=== PATIENT | female | born 1990 | race Caucasian/White ===

== ENCOUNTER → 2016-07-31 | Day surgery (SDC) | payer OTHER ==
[~2016-07-31] MED LIST: DO NOT ADM ANY ANTICOAGULANT DRUGS XX PRN; FERR325T PO; INSULIN HUMAN REGULAR 1,000 UNITS/10 ML VIAL SQ PRN; LACTATED RINGER'S 1000 ML IV SCH; METOPROLOL TARTRATE 25 MG TAB PO PRN; MIDAZOLAM HCL 2 MG/2 ML VIAL ONE; PREN29TA PO; PROPOFOL 200 MG/20 ML AMP IV ONE; SODIUM CHLORID 0.9% 500 ML IV SCH; oxyCODONE/ACETAMINOPHEN 5 MG/325 MG TAB PO PRN
[2016-07-31 10:39] VITALS: BP 125/75; PULSE 93; RESP 20; TEMP 98.9; O2SAT 93
--- NOTE | 2016-07-31 11:17 | HHI.HP ---
History of Present Illness Service OB Primary Care Physician No Primary Care Physician Admission Diagnosis incompetent cervix Diagnoses: (1) Incompetence of cervix Diagnosis: Principal (2) with 13 completed weeks gestation Diagnosis: Secondary Review of Systems Except as stated in HPI: all other systems reviewed are Neg Past Family Social History Allergies: Coded Allergies: No Known Allergies (Verified , 07/30/16) Past Medical History none Past Surgical History cervical cerclage Reported Medications none Social History negative x3 Physical Exam Vital Signs Vital Signs Date Time Temp Pulse Resp B/P Pulse Ox O2 Delivery O2 Flow Rate FiO2 07/31/16 10:39 98.9 93 20 125/75 93 Physical Exam GENERAL: This is a well-nourished, well-developed patient, in no apparent distress. SKIN: No rashes, ecchymoses or lesions. Cool and dry. HEAD: Atraumatic. Normocephalic. No temporal or scalp tenderness. EYES: Pupils equal round and reactive. Extraocular motions intact. No scleral icterus. No injection or drainage. ENT: Nose without bleeding, purulent drainage or septal hematoma. Throat without erythema, tonsillar hypertrophy or exudate. Uvula midline. Airway patent. NECK: Trachea midline. No JVD or lymphadenopathy. Supple, nontender, no meningeal signs. CARDIOVASCULAR: Regular rate and rhythm without murmurs, gallops, or rubs. RESPIRATORY: Clear to auscultation. Breath sounds equal bilaterally. No wheezes , rales, or rhonchi. GASTROINTESTINAL: Abdomen soft, non-tender, nondistended. No hepato-splenomegaly , or palpable masses. No guarding. MUSCULOSKELETAL: Extremities without clubbing, cyanosis, or edema. No joint tenderness, effusion, or edema noted. No calf tenderness. Negative Homans sign bilaterally. NEUROLOGICAL: Awake and alert. Cranial nerves II through XII intact. Motor and sensory grossly within normal limits. Five out of 5 muscle strength in all muscle groups. Normal speech. Assessment and Plan Problem List: (1) Incompetence of cervix Status: Acute (2) with 13 completed weeks gestation Status: Acute Plan: cervical cerclage with incompetent cervix at 13 weeks Doe Smith MD Jul 31, 2016 11:17
[2016-07-31 11:18] LABS: AUTOMATED NEUTROPHIL # 5.3 TH/MM3 (1.8-7.7); BASOPHIL # 0.1 TH/MM3 (0-0.2); BASOPHIL % 0.8 % (0.0-2.0); EOSINOPHIL # 0.2 TH/MM3 (0-0.4); EOSINOPHIL % 2.4 % (0.0-4.0); HEMATOCRIT 31.3 % (35.0-46.0); HEMO FLAGS DIFF FINAL; LYMPH % 27.1 % (9.0-44.0); LYMPHOCYTE # 2.2 TH/MM3 (1.0-4.8); MEAN CELL VOLUME 90.2 FL (80.0-100.0); MEAN CORPUSCULAR HEMOGLOBIN 30.6 PG (27.0-34.0); MEAN CORPUSCULAR HGB CONC 33.9 % (32.0-36.0); MONO % 4.2 % (0.0-8.0); NEUT % 65.5 % (16.0-70.0); PLATELET COUNT 264 TH/MM3 (150-450); RED BLOOD COUNT 3.48 MIL/MM3 (4.00-5.30); WHITE BLOOD COUNT 8.1 TH/MM3 (4.0-11.0)
--- NOTE | 2016-07-31 12:24 | PD.OP ---
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
--- NOTE | 2016-07-31 12:29 | HHI.DCPOC ---
Discharge Care Plan Diagnosis: (1) Incompetence of cervix Report Symptoms to Your Doctor -Temperate above 100.5 degrees -Redness, of incision or excessive or foul smelling drainage -Unusual pain or calf pain -Increased vaginal bleeding -Painful or difficulty urinating -Feelings of extreme sadness or anxiety after 2 weeks Goals to Promote Your Health * To prevent worsening of your condition and complications * To maintain your health at the optimal level Directions to Meet Your Goals Take your medications as prescribed Follow your dietary instruction Follow activity as directed Ensure plenty of rest for recovery Drink fluids for hydration Keep your appointments as scheduled Take your immunizations and boosters as scheduled If your symptoms worsen call your PCP, if no PCP go to Urgent Care Center or Emergency Room Smoking is Dangerous to Your Health. Avoid second hand smoke Call the 24-hour crisis hotline for domestic abuse at Doe Smith MD Jul 31, 2016 12:29
--- NOTE | 2016-07-31 12:31 | HHI.DS ---
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
[2016-07-31 13:38] VITALS: BP 121/72; PULSE 84; RESP 18; TEMP 98.9; O2SAT 99
--- NOTE | 2016-08-02 07:07 | MP ---
cc: JEAN CLAUDE SMITH M.D. DATE OF PROCEDURE 07/31/2016 PROCEDURE Cervical cerclage. PREOPERATIVE DIAGNOSIS Incompetent cervix. POSTOPERATIVE DIAGNOSIS Incompetent cervix. SURGEON Dr. Jean Claude Smith ANESTHESIA Spinal, Dr. Rowan COMPLICATIONS None. FINDINGS Normal female pelvic anatomy. The cervix was closed, starting to thin, 3 cm in length. PROCEDURE IN DETAIL After informed consent, the patient was taken to the operating room where she was placed under spinal anesthesia, placed in supine position, legs in the candy-cane stirrups. The abdomen, perineum and vagina were prepped and draped in normal sterile fashion. After adequate anesthesia was assured and time-out was taken, a cervical cerclage was placed with #1 Prolene suture. We went through the cervix in circumferential fashion starting at 1 o'clock. After five passes through the cervix, into the body but not into the os, we tied down the first suture. A second suture was placed slightly cephalad, 5 to 8-mm cephalad of the first stitch and good hemostasis was achieved at both sutures as they were tied down. A loop was applied both at the 1 o'clock portion approximately 1 cm apart. The patient did very well with her surgery. heart tones were listened to prior to the surgery and will be listened to afterward. The patient tolerated the procedure well. She was taken to the recovery room in stable condition. MD LAUREN Turner/HERMES /12:26 PM /7:02 AM
== END | disposition home or self-care (01) ==
LOC: HSDC 09:52
PROVIDERS: ATTEND Obstetrics & Gynecology
DX: O34.31 Maternal care for cervical incompetence, first trimester (principal); Z3A.13 13 weeks gestation of pregnancy
CPT/HCPCS: 00948; 59320; 85025; J2250

== ENCOUNTER → 2016-09-11 | Outpatient (CLI) | payer MEDICAID, OTHER ==
[~2016-09-11] MED LIST changes: -DO NOT ADM ANY ANTICOAGULANT DRUGS XX PRN; -INSULIN HUMAN REGULAR 1,000 UNITS/10 ML VIAL SQ PRN; -LACTATED RINGER'S 1000 ML IV SCH; -METOPROLOL TARTRATE 25 MG TAB PO PRN; -MIDAZOLAM HCL 2 MG/2 ML VIAL ONE; -PROPOFOL 200 MG/20 ML AMP IV ONE; -SODIUM CHLORID 0.9% 500 ML IV SCH; -oxyCODONE/ACETAMINOPHEN 5 MG/325 MG TAB PO PRN
== END ==
LOC: HPND 12:46
PROVIDERS: ATTEND Obstetrics & Gynecology
DX: O34.32 Maternal care for cervical incompetence, second trimester (principal); O09.292 Supervision of pregnancy with other poor reproductive or obstetric history, second trimester; Z3A.19 19 weeks gestation of pregnancy
CPT/HCPCS: 76805; 76817

== ENCOUNTER → 2016-10-15 | Outpatient (CLI) | payer MEDICAID | LOC: HPND 09:02 | PROVIDERS: ATTEND Obstetrics & Gynecology | DX: O34.32 Maternal care for cervical incompetence, second trimester (principal); O09.292 Supervision of pregnancy with other poor reproductive or obstetric history, second trimester; Z3A.24 24 weeks gestation of pregnancy | CPT/HCPCS: 76816; 76817 ==

== ENCOUNTER → 2016-11-29 | Outpatient (CLI) | payer MEDICAID | LOC: HPND 09:21 | PROVIDERS: ATTEND Obstetrics & Gynecology | DX: O34.30 Maternal care for cervical incompetence, unspecified trimester (principal) | CPT/HCPCS: 76816 ==

== ENCOUNTER 2017-01-30 08:13 | Inpatient (IN) | payer MEDICAID ==
[2017-01-30] VITALS (83 sets, daily range): BP systolic 100–152; BP diastolic 44–125; PULSE 71–190; RESP 16–18; TEMP 97.9–98.2
[2017-01-30] MEDS ORDERED: LACTATED RINGER'S 1000 ML INJ 1,000 ML IV PRN (09:05)
[2017-01-30] MEDS ORDERED: SODIUM CHLORID 0.9% 500 ML INJ 500 ML IV PRN (09:15)
[2017-01-30] MEDS ORDERED: OXYTOCIN 30 UNITS-500ML PREMIX 500 ML IV SCH ×2 (09:15→14:00)
[2017-01-30] MEDS ORDERED: MINERAL OIL 10 ML VIAL TOPICAL PRN (09:15)
[2017-01-30] MEDS ORDERED: LIDOCAINE HCL 1% 50 ML VIAL I-DERMAL PRN (09:15)
[2017-01-30] MEDS ORDERED: CITRIC ACID-SODIUM CITRATE LIQ 30 ML UDC PO SCH (09:15)
[2017-01-30] MEDS ORDERED: LIDOCAINE HCL 1% 50 ML VIAL INFIL PRN (09:15)
[2017-01-30] MEDS ORDERED: OXYTOCIN 30 UNITS-500ML PREMIX 500 ML IV ONE (09:15)
[2017-01-30 09:24] LABS: BACTERIA, URINE RARE /hpf; BLOOD, URINE NEG (NEG); COMMENT (UR) CULT NOT INDICATED; CULTURE IF INDICATED CULT NOT INDICATED; GLUCOSE,URINE NEG (NEG); KETONE, URINE NEG (NEG); MUCUS URINE FEW /lpf (OCC); NITRITE,URINE NEG (NEG); PH, URINE 7.5 (5.0-8.5); SQUAMOUS EPITHELIAL CELL URINE 1 /hpf (0-5); URINE COLOR LIGHT-YELLOW (YELLW/STRAW)
[2017-01-30 09:25] LABS: AUTOMATED NEUTROPHIL # 7.6 TH/MM3 (1.8-7.7); BASOPHIL % 0.3 % (0.0-2.0); EOSINOPHIL # 0.2 TH/MM3 (0-0.4); EOSINOPHIL % 1.6 % (0.0-4.0); HEMATOCRIT 32.8 % (35.0-46.0); HEMO FLAGS DIFF FINAL; LYMPHOCYTE # 2.2 TH/MM3 (1.0-4.8); MEAN CELL VOLUME 91.4 FL (80.0-100.0); MEAN CORPUSCULAR HEMOGLOBIN 30.2 PG (27.0-34.0); MEAN CORPUSCULAR HGB CONC 33.1 % (32.0-36.0); MONO % 4.5 % (0.0-8.0); NEUT % 72.6 % (16.0-70.0); PLATELET COUNT 226 TH/MM3 (150-450); RED BLOOD COUNT 3.59 MIL/MM3 (4.00-5.30); RED CELL DISTRIBUTION WIDTH 14.7 % (11.6-17.2); WHITE BLOOD COUNT 10.4 TH/MM3 (4.0-11.0)
[2017-01-30] MEDS ORDERED: SODIUM CHLOR 0.9% 1000 ML INJ 1,000 ML IV PRN (09:25)
[2017-01-30] MEDS ORDERED: ePHEDrine/NS 25 MG/5 ML SYR ONE (09:48)
[2017-01-30] MEDS ORDERED: fentaNYL 2MCG-BUPIV 0.125% INJ 100 ML ONE (09:48)
[2017-01-30] MEDS: LACTATED RINGER'S 1000 ML INJ 1,000 ML IV SCH ×3 (10:12→12:31)
[2017-01-30] MEDS ORDERED: TERBUTALINE INJ 1 MG/ML AMP ONE ×2 (11:23→12:21)
[2017-01-30] MEDS ORDERED: ePHEDrine/NS 25 MG/5 ML SYR IV PRN (12:00)
[2017-01-30] MEDS ORDERED: fentaNYL 2MCG-BUPIV 0.125% 100 ML EPIDURAL SCH (12:00)
[2017-01-30] MEDS ORDERED: DO NOT ADMINISTER ANTICOAGULANTS PRN (12:00)
[2017-01-30] MEDS ORDERED: NO SYSTEM NARCOTICS PRN (12:00)
[2017-01-30] MEDS ORDERED: LIDOCAINE HCL 1.5% PF SOLN 20 ML AMP ONE (12:06)
--- NOTE | 2017-01-30 13:54 | PD.OB.DELI ---
Weeks gestation: 39 Gest age assessed date: Jan 30, 2017 Gest age assessed time: 08:40 Pt started active labor?: Yes Medical induction of labor?: Yes Artificial rupture of membrane: Yes Episiotomy: None Vaginal Delivery: Normal Presentation: Occiput anterior Nuchal Cord: None Delayed cord clamping (45 sec): Yes : Female, Single Delivery date: Jan 30, 2017 Delivery time: 13:41 One Minute : 8 Five Minute : 9 Weight: [id number] Placenta: Spontaneous delivery, Intact, 3 vessel cord Laceration: No lacerations Estimated blood loss: 300 Doe Smith MD Jan 30, 2017 13:54
[2017-01-30] MEDS ORDERED: ACETAMINOPHEN 325 MG TAB PO PRN (14:00)
[2017-01-30] MEDS ORDERED: ALUMINUM/MAGNESIUM/SIMETH 30 ML CUP PO PRN (14:00)
[2017-01-30] MEDS ORDERED: WITCH HAZEL 50%/GLYCERIN 12.5% 40 PAD JAR TOPICAL PRN (14:00)
[2017-01-30] MEDS ORDERED: SODIUM CHLORIDE 0.9% FLUSH 10 ML FLUSH IV FLUSH PRN (14:00)
[2017-01-30] MEDS ORDERED: ONDANSETRON ODT 4 MG TAB PO PRN (14:00)
[2017-01-30] MEDS ORDERED: BENZOCAINE 20% TOPICAL SPRAY 60 ML CAN TOPICAL PRN (14:00)
[2017-01-30] MEDS: IBUPROFEN 600 MG TAB PO PRN ×2 (14:33→21:15)
[2017-01-30] MEDS ORDERED: DIPHTH/TETANUS/ACEL PERTUSSIS (BOOSTER) 0.5 ML VIAL/PFS IM ONE (16:00)
[2017-01-30] MEDS ORDERED: MEASLES, MUMPS, RUBELLA VACCINE 0.5 ML VIAL SQ ONE (16:00)
[2017-01-30] MEDS ORDERED: oxyCODONE/ACETAMINOPHEN 5 MG/325 MG TAB PO PRN (20:30)
[2017-01-30] MEDS ORDERED: SODIUM CHLORIDE 0.9% FLUSH 10 ML FLUSH IV FLUSH SCH (21:00)
[2017-01-30] MEDS ORDERED: ZOLPIDEM TARTRATE 5 MG TAB PO PRN (21:00)
[2017-01-30] MEDS ORDERED: DOCUSATE SODIUM 50 MG/SENNA 8.6 MG TAB PO PRN (21:00)
[2017-01-31] MEDS: oxyCODONE/ACETAMINOPHEN 5 MG/325 MG TAB PO PRN ×3 (01:55→10:34)
[2017-01-31] MEDS: IBUPROFEN 600 MG TAB PO PRN ×3 (04:30→18:02)
[2017-01-31 09:10] VITALS: BP 118/83; PULSE 73; RESP 14; TEMP 98.2
--- NOTE | 2017-01-31 13:33 | HHI.OB ---
Subjective Post Day: 1 Remarks doing well Objective Objective Remarks GENERAL: Well-nourished, well-developed patient. ABDOMEN/GI: Abdomen soft, non-tender. Fundus: Firm, non-tender at umbilicus. GENITOURINARY: Light to moderate bleeding. EXTREMITIES: No cyanosis or edema, non-tender, without signs of DVT. Medications and IVs Current Medications Medications (Trade) Dose Ordered Sig/Anabela Route Start Time Stop Time Status Last Admin (NS Flush) 2 ml BID IV FLUSH 01/30/17 21:00 (NS Flush) 2 ml UNSCH PRN IV FLUSH 01/30/17 14:00 (Tylenol) 650 mg Q4H PRN PO 01/30/17 14:00 (Motrin) 600 mg Q6HR PRN PO 01/30/17 14:00 01/31/17 10:34 (Americaine 20% Top Spr) 1 spray Q4H PRN TOPICAL 01/30/17 14:00 (Tucks Pads) 1 applic QID PRN TOPICAL 01/30/17 14:00 (Valentina-Colace) 2 tab Q12HR PRN PO 01/30/17 21:00 01/31/17 01:54 (Ambien) 5 mg HS PRN PO 01/30/17 21:00 (Mag-Al Plus Susp Liq) 15 ml Q8H PRN PO 01/30/17 14:00 (Zofran Odt) 4 mg Q6H PRN PO 01/30/17 14:00 (Percocet 5-325 Mg) 1 tab Q4H PRN PO 01/30/17 20:30 01/30/17 21:16 (Percocet 5-325 Mg) 2 tab Q4H PRN PO 01/30/17 20:30 01/31/17 10:34 Assessment/Plan Problem List: (1) Spontaneous vaginal delivery ICD Codes: O80 - Encounter for full-term uncomplicated delivery (2) 39 weeks gestation of ICD Codes: Z3A.39 - 39 weeks gestation of Discharge Planning today Doe Smith MD Jan 31, 2017 13:33
--- NOTE | 2017-01-31 13:34 | HHI.DCPOC ---
Discharge Care Plan Diagnosis: (1) Spontaneous vaginal delivery Report Symptoms to Your Doctor -Temperature above 100.5 degrees -Redness, of incision or excessive or foul smelling drainage -Unusual pain or calf pain -Increased vaginal bleeding -Painful or difficulty urinating -Feelings of extreme sadness or anxiety after 2 weeks Goals to Promote Your Health * To prevent worsening of your condition and complications * To maintain your health at the optimal level Directions to Meet Your Goals Take your medications as prescribed Follow your dietary instruction Follow activity as directed Ensure plenty of rest for recovery Drink fluids for hydration Keep your appointments as scheduled Take your immunizations and boosters as scheduled If your symptoms worsen call your PCP, if no PCP go to Urgent Care Center or Emergency Room Smoking is Dangerous to Your Health. Avoid second hand smoke Call the 24-hour crisis hotline for domestic abuse at Doe Smith MD Jan 31, 2017 13:34
--- NOTE | 2017-01-31 13:36 | HHI.DS ---
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 MD Jan 31, 2017 13:36
[2017-01-31] MEDS ORDERED: OXYC1TAB63 PO (13:49)
[2017-02-01] MEDS ORDERED: INFLUENZA VIRUS VACCINE (QUADRIVALENT) 0.5 ML SYR IM ONE (10:00)
== END 2017-01-31 18:45 | disposition home or self-care (01) | DRG 775 ==
LOC: H2EA 08:13 → H1EA 16:23
PROVIDERS: ADMIT Obstetrics & Gynecology; ATTEND Obstetrics & Gynecology
PROC: 10E0XZZ Delivery of Products of Conception, External Approach (ICD-10-PCS; principal; 2017-01-30)
PROC: 10907ZC Drainage of Amniotic Fluid, Therapeutic from Products of Conception, Via Natural or Artificial Opening (ICD-10-PCS; 2017-01-30)
PROC: 00HU33Z Insertion of Infusion Device into Spinal Canal, Percutaneous Approach (ICD-10-PCS; 2017-01-30)
PROC: 3E0R3CZ (ICD-10-PCS; 2017-01-30)
DX: O80 Encounter for full-term uncomplicated delivery (principal); Z37.0 Single live birth; Z3A.39 39 weeks gestation of pregnancy
CPT/HCPCS: 81001; 85025; 86900; 86901; 90686; 90715; J2590; J3105; J7030; J7120; Q2038